=== PATIENT | male | born 2000 | race Caucasian/White ===

== ENCOUNTER 2018-02-28 10:21 | Emergency (ER) ==
[2018-02-28 10:28] VITALS: BP 143/94; TEMP 67.1; BMI 27.8
--- NOTE | 2018-02-28 10:41 | ED.PDOC ---
General ED Provider: Dr. AKIL HARRINGTON Chief Complaint: Finger Pain/Injury Stated Complaint: CC: [place] in index finger. HPI: Was fishing and had just caught a ko, taken it off the hook on a lure then on side of the trebble hook impaled the tip of his Rt index finger. Last Tetanus shot 1 year ago. Time Seen by Physician: 10:40 Mode of Arrival: Walk-In Information Source: Patient, Family Exam Limitations: No limitations Nursing and Triage Documentation Reviewed and Agree: Yes Reviewed sepsis parameters & appropriate labs ordered?: Yes System Inflammatory Response Syndrome: Not Applicable Sepsis Protocol: For patient's 13 years and over: Temp is 96.8 and below OR 101 and greater Pulse >90 BPM Resp >20/minute Acutely Altered Mental Status Are patient's symptoms suggestive of a new infection, such as: -Pneumonia -Skin, Soft Tissue -Endocarditis -UTI -Bone, Joint Infection -Implantable Device -Acute Abdominal Infection -Wound Infection -Meningitis -Blood Stream Catheter Infection -Unknown Trauma/Injury Complaint Exam - Trauma Complaint/Exam Location of Pain or Injury: Reports: RUE (tip of index finger) Mechanism of Injury: Reports: Other (puncture wound) Symptoms Are: Still present Timing of Treatment: Immediate Initial Severity: Moderate Current Severity: Moderate Character: Reports: Sharp Aggravating: Reports: Movement Alleviating: Reports: Rest Associated Signs and Symptoms: Denies: LOC, Confusion, Memory loss, Lethargy, Vomiting, Bleeding, Bruising, Swelling, Extremity disuse, Painful respiration, Hoarseness, Dysphagia, Hemoptysis, Significant blood loss Related History: Denies: Similar episode, Alcohol abuse, Drug abuse Related Surgical History: Reports: None Compartment Syndrome Risk Factors: Present: Pain. Absent: Paralysis, Pallor, Pulselessness, Paresthesias Skin Findings: Present: Swelling (puncture wound with fish hook impaled in tip of index finger) Differential Diagnoses: Other (puncture wound) Review of Systems - Review Of Systems Constitutional: Reports: No symptoms Eyes: Reports: No symptoms Ears, Nose, Mouth, Throat: Reports: No symptoms Respiratory: Reports: No symptoms Cardiac: Reports: No symptoms GI: Reports: No symptoms : Reports: No symptoms Musculoskeletal: Reports: No symptoms Skin: Reports: No symptoms Neurological: Reports: No symptoms Endocrine: Reports: No symptoms Hematologic/Lymphatic: Reports: No symptoms All Other Systems: Reviewed and Negative Past Medical History - Past Medical History Previously Healthy: Yes Endocrine: Reports: None Cardiovascular: Reports: None Respiratory: Reports: None Hematological: Reports: None Gastrointestinal: Reports: None Genitourinary: Reports: None Neuro/Psych: Reports: None Musculoskeletal: Reports: None Cancer: Reports: None - Surgical History General Surgical History: Reports: None - Family History Family History: Reports: None - Social History Smoking Status: Never smoker Hx Substance Use: No Alcohol Screening: None - Immunizations Tetanus Shot up to Date: Yes Physical Exam - Physical Exam Appearance: Well-appearing, No pain distress, Well-nourished Ill-appearing: None Pain Distress: Mild Eyes: BISI, EOMI, Conjunctiva clear ENT: Ears normal, Nose normal, Oropharynx normal Respiratory: Airway patent, Breath sounds clear, Breath sounds equal, Respirations nonlabored Cardiovascular: RRR, Pulses normal, No rub, No murmur GI/: Soft, Nontender, No masses, Bowel sounds normal, No Organomegaly Musculoskeletal: Normal strength, ROM intact, No edema, No calf tenderness Skin: Warm (FISH HOOK RT INDEX FINGER-PUNCTURE WOULD), Dry Neurological: Sensation intact, Motor intact, Reflexes intact, Cranial nerves intact, Alert, Oriented Psychiatric: Affect appropriate, Mood appropriate Procedures - Foreign Body Removal Location of Foreign Object: tip rt index finger Foreign Object: fish hook Depth of Object: subcutaneous Type of Anesthesia: Local (1 % xylocaine plain) Medication Used: Yes: Lidocaine Prep: Saline, Betadine, Hibiclens Irrigation: No Skin Incised: No Instruments Used: Yes: Other (sleeper cutter and hemostat) Foreign Body Identified and Removed: Yes (Area injected with 1 cc xylocaine; ) Critical Care Note - Critical Care Note Total Time (mins): 60 (PROCEDURE COMPLETED, REVIEWED TREATMENT PROCEDURE TO PATIENT FAMILY) Course - Course Orders, Labs, Meds: Orders Category Date Time Status Lidocaine HCl/Pf [Lidocaine HCl 1% Sdv] MEDS 02/28/18 10:43 Discontinued 5 ml SUBCUT ONCE STA Medications Discontinued Medications Generic Name Dose Route Start Last Admin Trade Name Freq PRN Reason Stop Dose Admin Lidocaine HCl 5 ml 02/28/18 10:43 02/28/18 10:49 Lidocaine Hcl 1% Sdv SUBCUT 02/28/18 10:44 5 ml ONCE STA Administration Vital Signs: Temp Pulse Resp BP Pulse Ox 06/09/18 10:22 67.1 F L 77 16 143/94 H 97 Departure - Departure Time of Disposition: 11:35 Disposition: HOME SELF-CARE Discharge Problem: Fish hook injury of right index finger Instructions: Soft Tissue Foreign Body (ED), Puncture Wound (ED) Condition: Good Pt referred to PMD for follow-up: Yes (1 week(5-7 days)) IPMP verified?: No (N/I) Additional Instructions: Keep dressing in place for 48 hours then change daily MAY TAKE IBUPROFEN 200 MG 3 TABS 4 TIMES DAILYI NEEDED Take antibiotics as directed Follow up with PCP with in 7 days If wouND develops FEVER, WARMTH abnormal drainage or appearance of becoming reddened/ increasing pain, return to the ER or go to your PCP Prescriptions: Cephalexin [Keflex] 500 mg PO QID #30 capsule Allergies/Adverse Reactions: Allergies No Known Allergies Allergy (Verified 02/28/18 10:30) Home Medications: Ambulatory Orders Cephalexin [Keflex] 500 mg PO QID #30 capsule 02/28/18 Disposition Discussed With: Patient, Family
[2018-02-28] MEDS ORDERED: LIDOCAINE HCL 1% SDV SUBCUT STA (10:43)
== END 2018-02-28 11:52 | disposition home or self-care (01) ==
LOC: ED 10:21
DX: S61.240A Puncture wound with foreign body of right index finger without damage to nail, initial encounter (principal); W45.8XXA Other foreign body or object entering through skin, initial encounter
CPT/HCPCS: 99283

== ENCOUNTER 2018-07-30 13:49 | Outpatient (CLI) ==
--- NOTE | 2018-07-30 15:08 | DI ---
EXAM: KUB. History: Abdominal pain. Findings: Nonspecific but nonobstructive bowel gas pattern. Moderate colonic stool. No free intrap eritoneal air. No acute osseous abnormalities and no suspicious calcifications. Impression: No acute radiographic findings in the abdomen
== END 2018-07-30 13:50 | disposition home or self-care (01) ==
LOC: RAD 13:49
PROVIDERS: ATTEND Nurse Practitioner Family
DX: R10.9 Unspecified abdominal pain (principal); R31.9 Hematuria, unspecified